=== PATIENT | male | born 1995 | race Caucasian/White ===

== ENCOUNTER 2024-10-14 18:28 | Emergency (ER) | payer MEDICAID ==
[~2024-10-14] VITALS: Ht 188 cm; Wt 72.0 kg
[2024-10-14 18:53] VITALS: O2SAT 97
[2024-10-14] MEDS: IBUPROFEN 600MG TABLET PO ONE (22:54)
[2024-10-14] MEDS ORDERED: IBUP-1455 MT (23:25)
[2024-10-14] MEDS ORDERED: BO1 TP (23:40)
[2024-10-15 00:27] VITALS: BP 130/96; PULSE 71; RESP 14; TEMP 36.6; O2SAT 98
== END 2024-10-15 01:03 | disposition home or self-care (01) ==
LOC: ER 18:28
DX: M25.532 Pain in left wrist (principal); M76.62 Achilles tendinitis, left leg; J45.909 Unspecified asthma, uncomplicated; W57.XXXA Bitten or stung by nonvenomous insect and other nonvenomous arthropods, initial encounter; Y93.89 Activity, other specified; Y92.89 Other specified places as the place of occurrence of the external cause; Y99.8 Other external cause status
CPT/HCPCS: 29515; 73100; 73600; 99284

== ENCOUNTER 2024-10-15 17:10 | Emergency (ER) | payer MEDICAID ==
[~2024-10-15] VITALS: Ht 185.4 cm; Wt 75.0 kg
[~2024-10-15 17:10] MED LIST: BO1 TP; IBUP-2029 MT
[2024-10-15 17:18] VITALS: O2SAT 100
[2024-10-15 18:03] LABS: BASOPHILS % 0.4 % (0.0-2.0); EOSINOPHILS % 2.8 % (0.0-5.0); HEMATOCRIT. 39.6 % (42.0-52.0); HEMOGLOBIN. 13.4 g/dL (14.0-18.0); LYMPHOCYTES % 15.2 % (20.0-50.0); MEAN PLATELET VOLUME 6.6 fl (7.4-10.4); MONOCYTES % 7.4 % (2.0-8.0); NEUTROPHILS % 74.2 % (40.0-76.0); PLATELET 236 x1000/uL (130-400); RED BLOOD CELL COUNT 4.11 mill/uL (4.7-6.1); RED CELL DISTRIBUTION WIDTH 13.5 % (11.6-14.6)
[2024-10-15 18:16] LABS: CREATININE 0.8 mg/dL (0.6-1.3); ETHANOL BLOOD < 10 mg/dL (<10); UREA NITROGEN BLOOD 10 mg/dL (9-23)
[2024-10-15 18:29] LABS: *AMPHETAMINES SCREEN URINE NEGATIVE (NEGATIVE); *BARBITURATES SCREEN URINE NEGATIVE (NEGATIVE); *BENZODIAZEPINES SCREEN URINE NEGATIVE (NEGATIVE); *COCAINE SCREEN URINE NEGATIVE (NEGATIVE); CANNABINOID URINE SCREEN PRESUMPTIVE POSITIVE (NEGATIVE); ECSTASY MDMA SCREEN URINE NEGATIVE (NEGATIVE); METHADONE URINE SCREEN NEGATIVE (NEGATIVE); OPIATES URINE SCREEN NEGATIVE (NEGATIVE); PHENCYCLIDINE URINE SCREEN NEGATIVE (NEGATIVE)
[2024-10-16] MEDS: OLANZAPINE 5MG TABLET ODT PO SCH (09:00)
[2024-10-16 14:16] VITALS: BP 126/82; PULSE 82; RESP 20; TEMP 36.9; O2SAT 99
== END 2024-10-16 14:20 ==
LOC: ER 17:10
DX: F20.9 Schizophrenia, unspecified (principal); F31.9 Bipolar disorder, unspecified; J45.909 Unspecified asthma, uncomplicated; F41.9 Anxiety disorder, unspecified; Z79.899 Other long term (current) drug therapy; Z20.822 Contact with and (suspected) exposure to COVID-19
CPT/HCPCS: 80305; 80048; 80307; 80329; 80320; 85025; 36415; 99285; 87426; Z7610; G0480